=== PATIENT | male | born 1990 | race Caucasian/White ===

== ENCOUNTER 2017-06-10 07:55 | Emergency (ER) | payer BC ==
[2017-06-10 08:20] VITALS: BP 114/74
[2017-06-10] MEDS ORDERED: predniSONE TAB* 20 MG PO ONE ×2 (08:38→08:43)
--- NOTE | 2017-06-10 08:43 | UC ---
Respiratory Complaint HPI - HPI Summary HPI Summary: Patient has had a week of cold symptoms, but now has a sore throat and productive cough, gets SOB very easily - History of Current Complaint Chief Complaint: UCRespiratory Stated Complaint: COUGH Time Seen by Provider: 06/10/17 08:33 Hx Obtained From: Patient Onset/Duration: Sudden Onset, Lasting Days Timing: Constant Severity Initially: Moderate Severity Currently: Moderate Character: Cough: Productive Aggravating Factors: Exertion, Deep Breaths, Recumbent Position Alleviating Factors: Nothing Associated Signs And Symptoms: Positive: Wheezing, URI, Nasal Congestion, Hoarseness - Allergies/Home Medications Allergies/Adverse Reactions: Allergies Allergy/AdvReac Type Severity Reaction Status Date / Time No Known Allergies Allergy Verified 06/10/17 08:20 Home Medications: Home Medications Dm Cough Med 1 dose PO Q12H PRN MDD cold 06/10/17 [History Confirmed 06/10/17] [id number] W/ APAP [Robitussin Severe Mul... [id number] mg/10Ml] 1 liq PO Q12H PRN 06/10/17 [History Confirmed 06/10/17] PMH/Surg Hx/FS Hx/Imm Hx Previously Healthy: Yes - Surgical History Surgical History: Yes Surgery Procedure, Year, and Place: left 2nd finger tendon with wire and screw 2010-05 - Family History Known Family History: Negative: Cardiac Disease, Hypertension - Social History Alcohol Use: Rare Substance Use Type: None Smoking Status (MU): Never Smoked Tobacco Review of Systems Constitutional: Fatigue Skin: Negative Eyes: Negative ENT: Sore Throat, Nasal Discharge, Sinus Congestion Respiratory: Shortness Of Breath, Cough Cardiovascular: Negative Gastrointestinal: Negative Genitourinary: Negative Motor: Negative Neurovascular: Negative Musculoskeletal: Negative Neurological: Negative Psychological: Negative Is Patient Immunocompromised?: No All Other Systems Reviewed And Are Negative: Yes Physical Exam Triage Information Reviewed: Yes Appearance: Well-Nourished, Ill-Appearing, Pain Distress Vital Signs: Initial Vital Signs Temp 98.2 F 06/10/17 08:12 Pulse 63 06/10/17 08:12 Resp 18 06/10/17 08:12 BP 114/74 06/10/17 08:12 Pulse Ox 100 06/10/17 08:12 Vital Signs Reviewed: Yes Eye Exam: Normal ENT: Positive: Pharyngeal erythema, Tonsillar swelling, Hoarse voice Dental Exam: Normal Neck exam: Normal Neck: Positive: Supple, Nontender, No Lymphadenopathy Respiratory: Positive: Chest non-tender, No respiratory distress, Decreased breath sounds, Wheezing, Inspiration Cardiovascular Exam: Normal Cardiovascular: Positive: RRR, No Murmur, Pulses Normal Abdominal Exam: Normal Abdomen Description: Positive: Nontender, No Organomegaly, Soft Bowel Sounds: Positive: Present Musculoskeletal Exam: Normal Musculoskeletal: Positive: Strength Intact, ROM Intact, No Edema Neurological Exam: Normal Neurological: Positive: Alert, Muscle Tone Normal Psychological Exam: Normal Skin Exam: Normal UC Diagnostic Evaluation - Laboratory O2 Sat by Pulse Oximetry: 100 Respiratory Course/Dx - Course Course Of Treatment: hx obtained, exam performed ,meds reviewed, rapid strep obtained, prednisone given - Differential Dx/Diagnosis Differential Diagnosis/HQI/PQRI: Asthma, Bronchitis, Laryngitis, Sinusitis Provider Diagnoses: pharyngitis. bronchospasm Discharge - Discharge Plan Condition: Stable Disposition: HOME Prescriptions: predniSONE TAB* [Deltasone TAB*] 40 mg PO DAILY #12 tab Patient Education Materials: Bronchospasm (ED) Referrals: Sangeetha STOREY,Garo Faulkner [Primary Care Provider] - Additional Instructions: 1. take the medication as prescribe. 2. increase fluid intake and get plenty of rest. 3. Use the albuterol as needed. 4. your strep was negative.
== END 2017-06-10 09:20 | disposition home or self-care (01) ==
LOC: UCCORT 07:55
DX: J02.9 Acute pharyngitis, unspecified (principal); J98.01 Acute bronchospasm
CPT/HCPCS: 87651; 99212; G0463; J7512

== ENCOUNTER 2019-04-22 17:48 | Emergency (ER) | payer BC ==
[2019-04-22 18:54] VITALS: BP 123/81
--- NOTE | 2019-04-22 19:05 | UC ---
Shoulder Pain HPI - HPI Summary HPI Summary: 28-year-old male who fell down a ravine on Sunday 2 days ago injuring his left shoulder. He denies any other injury. Did not hit his head nor does he complain of neck pain. No loss of consciousness. He is concerned because he cannot abduct his left arm completely without pain. - History of Current Complaint Chief Complaint: UCUpperExtremity Stated Complaint: LT SHOULDER INJURY Time Seen by Provider: 04/22/19 19:04 Hx Obtained From: Patient Onset/Duration: Sudden Onset Timing: Constant Severity Initially: Moderate Severity Currently: Mild Pain Intensity: 7 Character: Dull, Aching Aggravating Factor(s): Abduction Alleviating Factor(s): Rest Associated Signs And Symptoms: Positive: Negative - Allergies/Home Medications Allergies/Adverse Reactions: Allergies Allergy/AdvReac Type Severity Reaction Status Date / Time No Known Allergies Allergy Verified 04/22/19 18:54 Home Medications: Home Medications NK [No Home Medications Reported] 04/22/19 [History Confirmed 04/22/19] PMH/Surg Hx/FS Hx/Imm Hx Previously Healthy: Yes - Surgical History Surgical History: Yes Surgery Procedure, Year, and Place: left 2nd finger tendon with wire and screw 2010-05 - Family History Known Family History: Negative: Cardiac Disease, Hypertension - Social History Occupation: Employed Full-time Alcohol Use: Rare Substance Use Type: None Smoking Status (MU): Never Smoked Tobacco Review of Systems All Other Systems Reviewed And Are Negative: Yes Motor: Positive: Decreased ROM Musculoskeletal: Positive: Decreased ROM - Patient is only able to abduct his left arm approximately 45 and then experiences pain in his shoulder. Is Patient Immunocompromised?: No Physical Exam Triage Information Reviewed: Yes Appearance: Well-Appearing, Well-Nourished Vital Signs: Initial Vital Signs Temp 97.9 F 04/22/19 18:51 Pulse 65 04/22/19 18:51 Resp 16 04/22/19 18:51 BP 123/81 04/22/19 18:51 Pulse Ox 100 04/22/19 18:51 Vital Signs Reviewed: Yes Musculoskeletal: Positive: Strength Intact, ROM Limited @ - Patient able to abduct his left arm about 45. Negative drop arm test. Neurological Exam: Normal Psychological Exam: Normal Skin: Positive: Other - No bruising, erythema, deformity or swelling is noted. Good peripheral pulses neuro sensation and capillary refill. Shoulder Course/Dx - Course Course Of Treatment: Left shoulder x-ray: Negative as read by myself and Dr. Sanchez. Patient is to avoid movements that cause pain and definite follow-up with the orthopedist if he continues to have limited abduction. He can take Tylenol or Motrin for pain. - Differential Dx/Diagnosis Provider Diagnosis: Sprain of left shoulder Discharge ED - Sign-Out/Discharge Documenting (check all that apply): Patient Departure All imaging exams completed and their final reports reviewed: No - Discharge Plan Condition: Good Disposition: HOME Patient Education Materials: Shoulder Sprain (ED) Referrals: Cesar Ramírez MD [Primary Care Provider] - Uziel Fraga MD [Medical Doctor] - Additional Instructions: Avoid lifting, avoid movements that cause pain. Follow-up with the orthopedist early next week if continued pain or decreased range of motion. - Billing Disposition and Condition Condition: GOOD Disposition: Home
--- NOTE | 2019-04-23 10:16 | UC ---
- Progress Note Progress Note: Review of final x-ray report. 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 Consistent with preliminary reading by provider. No change in POC. Course/Dx - Diagnoses Provider Diagnoses: Sprain of left shoulder Discharge ED - Sign-Out/Discharge Documenting (check all that apply): Post-Discharge Follow Up All imaging exams completed and their final reports reviewed: Yes - Discharge Plan Condition: Good Disposition: HOME Patient Education Materials: Shoulder Sprain (ED) Referrals: Cesar Ramírez MD [Primary Care Provider] - Uziel Fraga MD [Medical Doctor] - Additional Instructions: Avoid lifting, avoid movements that cause pain. Follow-up with the orthopedist early next week if continued pain or decreased range of motion. - Billing Disposition and Condition Condition: GOOD Disposition: Home
== END 2019-04-22 19:40 | disposition home or self-care (01) ==
LOC: UCCORT 17:48
DX: S43.402A Unspecified sprain of left shoulder joint, initial encounter (principal); W16.42XA Fall into unspecified water causing other injury, initial encounter; Y92.89 Other specified places as the place of occurrence of the external cause
CPT/HCPCS: 99211; G0463